=== PATIENT | male | born 1950 | race Caucasian/White ===

== ENCOUNTER → 2023-07-28 08:16 | Outpatient (REF) | payer MEDICARE, SELFPAY | LOC: RCS 08:16 | PROVIDERS: ATTENDING PHYSICIAN Thoracic Surgery (Cardiothoracic Vascular Surgery); FAMILY PHYSICIAN Family Medicine | DX: Z98.890 Other specified postprocedural states (principal) | CPT/HCPCS: 93306 ==

== ENCOUNTER → 2024-07-14 10:04 | Outpatient (REF) | payer MEDICARE, SELFPAY | LOC: HWRCS 10:04 | PROVIDERS: ATTENDING PHYSICIAN Thoracic Surgery (Cardiothoracic Vascular Surgery); FAMILY PHYSICIAN Family Medicine | DX: Z95.1 Presence of aortocoronary bypass graft (principal) | CPT/HCPCS: 93306 ==